=== PATIENT | male | born 1935 | race Caucasian/White ===

== ENCOUNTER 2018-12-30 18:59 | Inpatient (IN) ==
[2018-12-30] MEDS ORDERED: Naloxone 0.4 MG/ML INJ IVP PRN (22:26)
[2018-12-31 02:14] LABS: Bilirubin,Urine Negative (Negative); Blood,Urine Negative (Negative); Clarity,Urine Clear (Clear); Color,Urine Yellow (Yellow); Glucose,Urine (UA) Normal (Normal); Ketones,Urine Trace mg/dL (Negative); Leukocyte Esterase,Urine Negative (Negative); Nitrite,Urine Negative (Negative); PH,Urine 7.5 pH Units (5.0-8.0); Protein,Urine Negative (Neg-Trace); Specific Gravity,Urine 1.018 (1.010-1.025); Urobilinogen,Urine Normal (Normal)
[2018-12-31 02:27] LABS: Amphetamine Screen,Urine Negative ng/mL (Cutoff=1000); Barbiturate Screen,Urine Negative ng/mL (Cutoff=200); Benzodiazepines Screen,Urine Negative ng/mL (Cutoff=200); Cannabinoid Screen,Urine Negative ng/mL (Cutoff = 50); Cocaine Screen,Urine Negative ng/mL (Cutoff= 300); Opiate Screen,Urine Negative ng/mL (Cutoff=300); Phencyclidine Screen,Urine Negative ng/mL (Cutoff=25)
[2018-12-31 05:27] LABS: Basophils % 0.4 %; Eosinophils % 0.9 %; Hematocrit 40.4 % (37.5-50.1); Hemoglobin 14.4 g/dL (12.9-16.9); Immature Granulocytes % 0.2 % (0-4); Lymphocytes # 0.9 K/mcL (0.6-4.6); Lymphocytes % 18.9 %; Mean Corpuscular HGB Conc 35.6 g/dL (31.6-35.5); Mean Corpuscular Hemoglobin 33.3 pg (28.0-33.3); Mean Corpuscular Volume 93.3 fL (83.0-100.0); Mean Platelet Volume 10.5 fL (9.4-12.4); Monocytes # 0.6 K/mcL (0.0-1.3); Monocytes % 13.4 %; Platelet Count 161 K/mcL (140-400); Red Blood Count 4.33 M/mcL (4.19-5.50); Red Cell Distribution Width 12.4 % (11.5-14.5); Segmented Neutrophils % 66.2 %; White Blood Count 4.5 K/mcL (4.3-11.1)
[2018-12-31 05:46] LABS: BUN/Creatinine Ratio 21 (6-26); Blood Urea Nitrogen 16 mg/dL (8-23); Calcium 8.5 mg/dL (8.6-10.3); Carbon Dioxide 22 mEq/L (23-29); Chloride 109 mEq/L (98-107); Glucose 89 mg/dL (70-105); Magnesium 1.9 mg/dL (1.6-2.6); Osmolality,Calculated 285 (280-300); Phosphorous 2.6 mg/dL (2.7-4.5); Potassium 3.6 mEq/L (3.5-5.1); Sodium 137 mEq/L (136-145); eGFR For African Americans > 60 (> 60); eGFR For Non-African Americans > 60 (> 60)
[2018-12-31] MEDS: *HR* Heparin 5,000 UNIT/ML VIAL SQ SCH ×2 (06:30→17:24)
[2019-01-01] MEDS: *HR* Heparin 5,000 UNIT/ML VIAL SQ SCH ×2 (05:46→19:36)
[2019-01-01] MEDS: Folic Acid 1 MG TABLET PO SCH (09:50)
[2019-01-01] MEDS: Cholecalciferol (D-3) 1,000 UNIT (25MCG) TABLET PO SCH (09:50)
[2019-01-02] MEDS: *HR* Heparin 5,000 UNIT/ML VIAL SQ SCH ×2 (06:40→18:49)
[2019-01-02] MEDS: Cholecalciferol (D-3) 1,000 UNIT (25MCG) TABLET PO SCH (16:30)
[2019-01-02] MEDS: Folic Acid 1 MG TABLET PO SCH (16:31)
[2019-01-02] MEDS: hydrOXYzine pamoate 25 MG CAPSULE PO PRN (16:31)
[2019-01-02] MEDS: tiZANidine 4 MG TABLET PO SCH (19:57)
[2019-01-03] MEDS: *HR* Heparin 5,000 UNIT/ML VIAL SQ SCH ×2 (05:41→17:57)
[2019-01-03] MEDS: Cholecalciferol (D-3) 1,000 UNIT (25MCG) TABLET PO SCH (09:43)
[2019-01-03] MEDS: Folic Acid 1 MG TABLET PO SCH (09:43)
[2019-01-03] MEDS: hydrOXYzine pamoate 25 MG CAPSULE PO PRN (09:43)
[2019-01-03] MEDS: tiZANidine 4 MG TABLET PO SCH (20:52)
[2019-01-04] MEDS: *HR* Heparin 5,000 UNIT/ML VIAL SQ SCH ×2 (06:01→18:41)
[2019-01-04] MEDS: Folic Acid 1 MG TABLET PO SCH (09:54)
[2019-01-04] MEDS: Cholecalciferol (D-3) 1,000 UNIT (25MCG) TABLET PO SCH (09:54)
[2019-01-04] MEDS: tiZANidine 4 MG TABLET PO SCH (21:13)
[2019-01-05] MEDS: *HR* Heparin 5,000 UNIT/ML VIAL SQ SCH ×2 (06:17→18:18)
[2019-01-05] MEDS: Folic Acid 1 MG TABLET PO SCH (09:07)
[2019-01-05] MEDS: Cholecalciferol (D-3) 1,000 UNIT (25MCG) TABLET PO SCH (09:07)
[2019-01-05] MEDS: tiZANidine 4 MG TABLET PO SCH (20:25)
[2019-01-05] MEDS ORDERED: Ondansetron 4 MG/2 ML VIAL IVP PRN (22:52)
[2019-01-06] MEDS: *HR* Heparin 5,000 UNIT/ML VIAL SQ SCH ×2 (05:43→20:39)
[2019-01-06] MEDS: Folic Acid 1 MG TABLET PO SCH (09:50)
[2019-01-06] MEDS: Cholecalciferol (D-3) 1,000 UNIT (25MCG) TABLET PO SCH (09:51)
[2019-01-06] MEDS: tiZANidine 4 MG TABLET PO SCH ×2 (20:13→20:49)
[2019-01-06] MEDS: hydrOXYzine pamoate 25 MG CAPSULE PO PRN (20:14)
[2019-01-06] MEDS ORDERED: *HR* Promethazine 25 MG/ML VIAL IVP ONE (20:29)
[2019-01-06] MEDS ORDERED: Haloperidol Lactate 5 MG/ML VIAL IVP ONE (20:29)
[2019-01-07] MEDS: *HR* Heparin 5,000 UNIT/ML VIAL SQ SCH (06:15)
[2019-01-07 07:18] VITALS: BP 149/71
[2019-01-07] MEDS: Folic Acid 1 MG TABLET PO SCH (08:27)
[2019-01-07] MEDS: Cholecalciferol (D-3) 1,000 UNIT (25MCG) TABLET PO SCH (08:27)
== END 2019-01-07 18:27 | DRG 918 ==
LOC: 2NENU → SUATTDRO 20:26 → 2NENU 01-04 11:08
PROVIDERS: ADMIT Internal Medicine; ATTEND Internal Medicine

== ENCOUNTER 2021-02-20 16:54 | Inpatient (IN) ==
[2021-02-20] MEDS ORDERED: Acetaminophen 325 MG TABLET PO PRN (20:26)
[2021-02-20] MEDS ORDERED: Naloxone 0.4 MG/ML INJ IVP PRN (20:26)
[2021-02-20] MEDS ORDERED: Melatonin 3 MG TABLET PO PRN (20:26)
[2021-02-20] MEDS ORDERED: *HR* HYDROcodone/Acet 5/325 mg TABLET PO PRN (20:26)
[2021-02-20] MEDS ORDERED: *HR* OxyCODONE Immed Rel 5 MG TABLET PO PRN (20:26)
[2021-02-20] MEDS ORDERED: Ondansetron ODT 4 MG TAB.RAPDIS SL PRN (20:26)
[2021-02-20 23:00] LABS: INR 1.2; Prothrombin Time 13.2 Seconds (9.4-12.1)
[2021-02-20 23:03] LABS: Activated Partial Thrombo Time 32.4 Seconds (26.0-36.0)
[2021-02-20 23:16] LABS: BUN/Creatinine Ratio 15 (6-26); Blood Urea Nitrogen 12 mg/dL (8-23); Calcium 8.6 mg/dL (8.6-10.3); Carbon Dioxide 26 mEq/L (23-29); Chloride 104 mEq/L (98-107); Glucose 119 mg/dL (70-105); Osmolality,Calculated 283 (280-300); Sodium 136 mEq/L (136-145); eGFR For African Americans > 60 (> 60); eGFR For Non-African Americans > 60 (> 60)
[2021-02-21 01:36] LABS: Basophils % 0.2 %; Eosinophils % 0.1 %; Hematocrit 41.2 % (37.5-50.1); Hemoglobin 13.8 g/dL (12.9-16.9); Immature Granulocytes % 0.4 % (0-4); Lymphocytes # 0.5 K/mcL (0.6-4.6); Lymphocytes % 6.6 %; Mean Corpuscular HGB Conc 33.5 g/dL (31.6-35.5); Mean Corpuscular Hemoglobin 33.9 pg (28.0-33.3); Mean Corpuscular Volume 101.2 fL (83.0-100.0); Mean Platelet Volume 10.3 fL (9.4-12.4); Monocytes # 0.7 K/mcL (0.0-1.3); Monocytes % 8.9 %; Neutrophils # 6.9 K/mcL (1.6-8.9); Platelet Count 148 K/mcL (140-400); Red Blood Count 4.07 M/mcL (4.19-5.50); Red Cell Distribution Width 12.8 % (11.5-14.5); Segmented Neutrophils % 83.8 %; White Blood Count 8.2 K/mcL (4.3-11.1)
[2021-02-21] MEDS ORDERED: *HR* Propofol 200 MG/20 ML VIAL IVP ONE (13:40)
[2021-02-21] MEDS ORDERED: *HR* Rocuronium Bromide 50 MG/5 ML VIAL ONE (13:41)
[2021-02-21] MEDS ORDERED: Ondansetron 4 MG/2 ML VIAL ONE (13:41)
[2021-02-21] MEDS ORDERED: *HR* Etomidate 40 MG/20 ML VIAL IVP ONE (13:41)
[2021-02-21] MEDS ORDERED: Lidocaine HCL 4 ML Topical Solution (Laryng-O-Jet Kit Sterile Pak) TP ONE (13:41)
[2021-02-21] MEDS ORDERED: *HR* FentaNYL (PF) 100 MCG/2 ML VIAL ONE (13:41)
[2021-02-21] MEDS ORDERED: Lidocaine -MPF 2% 5 ML VIAL ONE (13:41)
[2021-02-21] MEDS ORDERED: *HR* Succinylcholine 200 MG/10 ML VIAL IVP ONE (13:41)
[2021-02-21] MEDS ORDERED: CeFAZolin Syr 2,000MG/20 ML 2,000 MG/20 ML SYRINGE IVPB ONE (14:01)
[2021-02-21] MEDS ORDERED: Ringers Solution, Lactated 1,000 ML IVC SCH ×2 (14:15→17:10)
[2021-02-21] MEDS ORDERED: EPHEDrine 50 MG/ML VIAL ONE (15:07)
[2021-02-21] MEDS ORDERED: Melatonin 3 MG TABLET PO PRN (17:10)
[2021-02-21] MEDS ORDERED: Naloxone 0.4 MG/ML INJ IVP PRN (17:10)
[2021-02-21] MEDS ORDERED: Ondansetron ODT 4 MG TAB.RAPDIS SL PRN (17:10)
[2021-02-21] MEDS ORDERED: *HR* HYDROcodone/Acet 5/325 mg TABLET PO PRN (17:10)
[2021-02-21] MEDS: *HR* OxyCODONE Immed Rel 5 MG TABLET PO PRN (17:40)
[2021-02-21] MEDS: CeFAZolin 2 GM/120 ML BAG IVPB SCH (22:53)
[2021-02-22 05:15] LABS: BUN/Creatinine Ratio 17 (6-26); Blood Urea Nitrogen 15 mg/dL (8-23); Calcium 8.5 mg/dL (8.6-10.3); Carbon Dioxide 25 mEq/L (23-29); Chloride 104 mEq/L (98-107); Glucose 139 mg/dL (70-105); Osmolality,Calculated 285 (280-300); Potassium 4.2 mEq/L (3.5-5.1); Sodium 136 mEq/L (136-145); eGFR For African Americans > 60 (> 60); eGFR For Non-African Americans > 60 (> 60)
[2021-02-22 05:19] LABS: Hematocrit 39.6 % (37.5-50.1); Hemoglobin 13.2 g/dL (12.9-16.9); Immature Granulocytes % 0.3 % (0-4); Lymphocytes # 0.4 K/mcL (0.6-4.6); Lymphocytes % 5.9 %; Mean Corpuscular HGB Conc 33.3 g/dL (31.6-35.5); Mean Corpuscular Volume 102.1 fL (83.0-100.0); Monocytes # 0.8 K/mcL (0.0-1.3); Neutrophils # 5.4 K/mcL (1.6-8.9); Platelet Count 151 K/mcL (140-400); Red Blood Count 3.88 M/mcL (4.19-5.50); Segmented Neutrophils % 81.8 %; White Blood Count 6.6 K/mcL (4.3-11.1)
[2021-02-22] MEDS: *HR* OxyCODONE Immed Rel 5 MG TABLET PO PRN (06:06)
[2021-02-22] MEDS: CeFAZolin 2 GM/120 ML BAG IVPB SCH (08:22)
[2021-02-22] MEDS ORDERED: *HR* OxyCODONE Immed Rel 5 MG TABLET PO PRN (08:51)
[2021-02-22] MEDS ORDERED: Aspirin Enteric Coated 325 MG Tablet PO SCH (09:00)
[2021-02-22] MEDS ORDERED: Bisacodyl 10 MG RECTAL SUPPOSITORY RC PRN (12:47)
[2021-02-22] MEDS: 0.9 % Sodium Chloride 1,000 ML IVC SCH (16:52)
[2021-02-22] MEDS: Acetaminophen 325 MG TABLET PO PRN (18:25)
[2021-02-23 04:53] LABS: Basophils % 0.3 %; Eosinophils # 0.1 K/mcL (0.0-0.6); Eosinophils % 0.8 %; Hematocrit 36.2 % (37.5-50.1); Hemoglobin 12.4 g/dL (12.9-16.9); Immature Granulocytes % 0.4 % (0-4); Mean Corpuscular HGB Conc 34.3 g/dL (31.6-35.5); Mean Corpuscular Hemoglobin 35.4 pg (28.0-33.3); Mean Corpuscular Volume 103.4 fL (83.0-100.0); Mean Platelet Volume 9.8 fL (9.4-12.4); Monocytes % 12.8 %; Neutrophils # 5.4 K/mcL (1.6-8.9); Platelet Count 145 K/mcL (140-400); Segmented Neutrophils % 72.7 %; White Blood Count 7.4 K/mcL (4.3-11.1)
[2021-02-23] MEDS: 0.9 % Sodium Chloride 1,000 ML IVC SCH ×2 (05:11→18:59)
[2021-02-23 05:16] LABS: BUN/Creatinine Ratio 25 (6-26); Blood Urea Nitrogen 21 mg/dL (8-23); Calcium 8.3 mg/dL (8.6-10.3); Carbon Dioxide 28 mEq/L (23-29); Chloride 105 mEq/L (98-107); Glucose 93 mg/dL (70-105); Osmolality,Calculated 287 (280-300); Potassium 4.4 mEq/L (3.5-5.1); Sodium 137 mEq/L (136-145); eGFR For African Americans > 60 (> 60); eGFR For Non-African Americans > 60 (> 60)
[2021-02-23] MEDS: *HR* Enoxaparin 40 MG/0.4 ML SYRINGE SQ SCH (09:05)
[2021-02-23] MEDS: Acetaminophen 325 MG TABLET PO PRN (15:16)
[2021-02-24] MEDS: *HR* Enoxaparin 40 MG/0.4 ML SYRINGE SQ SCH (10:48)
[2021-02-24] MEDS: 0.9 % Sodium Chloride 1,000 ML IVC SCH (13:26)
[2021-02-24 17:46] LABS: Basophils % 0.5 %; Eosinophils # 0.1 K/mcL (0.0-0.6); Eosinophils % 1.4 %; Hematocrit 35.4 % (37.5-50.1); Hemoglobin 12.1 g/dL (12.9-16.9); Immature Granulocytes % 0.2 % (0-4); Lymphocytes # 0.7 K/mcL (0.6-4.6); Lymphocytes % 15.3 %; Mean Corpuscular HGB Conc 34.2 g/dL (31.6-35.5); Mean Corpuscular Hemoglobin 34.8 pg (28.0-33.3); Mean Corpuscular Volume 101.7 fL (83.0-100.0); Mean Platelet Volume 10.1 fL (9.4-12.4); Monocytes # 0.6 K/mcL (0.0-1.3); Monocytes % 13.7 %; Neutrophils # 2.9 K/mcL (1.6-8.9); Platelet Count 149 K/mcL (140-400); Red Blood Count 3.48 M/mcL (4.19-5.50); Red Cell Distribution Width 12.7 % (11.5-14.5); Segmented Neutrophils % 68.9 %; White Blood Count 4.2 K/mcL (4.3-11.1)
[2021-02-24 18:09] LABS: BUN/Creatinine Ratio 22 (6-26); Blood Urea Nitrogen 15 mg/dL (8-23); Calcium 8.3 mg/dL (8.6-10.3); Carbon Dioxide 28 mEq/L (23-29); Chloride 105 mEq/L (98-107); Glucose 93 mg/dL (70-105); Osmolality,Calculated 285 (280-300); Potassium 3.8 mEq/L (3.5-5.1); Sodium 137 mEq/L (136-145); eGFR For African Americans > 60 (> 60); eGFR For Non-African Americans > 60 (> 60)
[2021-02-24 23:30] LABS: Basophils % 0.4 %; Eosinophils # 0.1 K/mcL (0.0-0.6); Eosinophils % 1.6 %; Hematocrit 34.2 % (37.5-50.1); Hemoglobin 11.9 g/dL (12.9-16.9); Immature Granulocytes % 0.7 % (0-4); Lymphocytes # 0.7 K/mcL (0.6-4.6); Lymphocytes % 15.7 %; Mean Corpuscular HGB Conc 34.8 g/dL (31.6-35.5); Mean Corpuscular Hemoglobin 34.8 pg (28.0-33.3); Mean Platelet Volume 9.8 fL (9.4-12.4); Monocytes # 0.6 K/mcL (0.0-1.3); Monocytes % 13.6 %; Platelet Count 161 K/mcL (140-400); Red Blood Count 3.42 M/mcL (4.19-5.50); Red Cell Distribution Width 12.6 % (11.5-14.5); White Blood Count 4.5 K/mcL (4.3-11.1)
[2021-02-24 23:52] LABS: BUN/Creatinine Ratio 23 (6-26); Blood Urea Nitrogen 15 mg/dL (8-23); Calcium 8.2 mg/dL (8.6-10.3); Carbon Dioxide 25 mEq/L (23-29); Chloride 106 mEq/L (98-107); Glucose 86 mg/dL (70-105); Osmolality,Calculated 286 (280-300); Potassium 3.5 mEq/L (3.5-5.1); Sodium 138 mEq/L (136-145); eGFR For African Americans > 60 (> 60); eGFR For Non-African Americans > 60 (> 60)
[2021-02-25] MEDS: *HR* Enoxaparin 40 MG/0.4 ML SYRINGE SQ SCH (09:40)
[2021-02-25 15:44] VITALS: BP 140/76; PULSE 55; TEMP 98.4; O2SAT 97
[2021-02-25 17:09] LABS: Influenza A PCR Negative (Negative); Influenza B PCR Negative (Negative); Resp. Syncytial Virus PCR Negative (Negative)
[2021-02-25 17:17] LABS: SARS-CoV-2 by PCR (In House) Negative (Negative)
== END 2021-02-25 18:48 | DRG 482 ==
LOC: 3ANU → SUATTDRO 20:10
PROVIDERS: ADMIT Internal Medicine; ATTEND Family Medicine